=== PATIENT | female | born 1980 | race Two or more races ===

== ENCOUNTER → 2017-10-16 11:06 | Outpatient (CLI) | payer BC | END | disposition home or self-care (01) | LOC: D.CT 11:06 | DX: R11.0 Nausea (principal); R19.7 Diarrhea, unspecified; R10.9 Unspecified abdominal pain; K92.1 Melena ==

== ENCOUNTER → 2018-08-01 21:27 | Outpatient (CLI) | payer BC | END | disposition home or self-care (01) | LOC: D.LABREF 21:27 | DX: L72.0 Epidermal cyst (principal) ==

== ENCOUNTER → 2018-10-16 10:21 | Outpatient (CLI) | payer BC | END | disposition home or self-care (01) | LOC: D.CT 10:21 | DX: R10.32 Left lower quadrant pain (principal) ==

== ENCOUNTER 2018-11-15 10:10 | Outpatient (CLI) | payer BC ==
[2018-11-12 06:12] LABS: BASOPHILS 0.4 % (0-2); EOSINOPHILS 1.4 % (0-7); HEMOGLOBIN 13.8 g/dL (12-16); IMMATURE GRANULOCYTES 0.2 % (0-5); LYMPHOCYTES 27.7 % (15-50); MCH 30.7 pg (26.0-34.0); MCHC 34.5 g/dL (31.0-37.0); MCV 88.9 fL (80.0-100.0); MEAN PLATELET VOLUME 10.5 fL (7.4-10.4); MONOCYTES 8.5 % (2-11); NEUTROPHILS 61.8 % (40-80); PLATELET COUNT 242 10x3/uL (130-400); RDW 12.9 % (11.5-14.5); WBC 5.2 10x3/uL (4.8-10.8)
[2018-11-12 06:13] LABS: ANION GAP 15.1 mmol/L (8-16); CALCIUM 9.1 mg/dL (8.5-10.1); CARBON DIOXIDE 26.6 mmol/L (21.0-32.0); POTASSIUM - SERUM 3.7 mmol/L (3.5-5.1)
[2018-11-12 06:16] LABS: APTT 27.3 SECONDS (22.8-39.4); INR 1.06 (0.85-1.17); PROTIME 13.3 SECONDS (11.6-15.0)
[2018-11-12 06:39] VITALS: BMI 22.9
[2018-11-12 07:02] LABS: HCG URINE NEGATIVE (NEGATIVE)
--- NOTE | 2018-11-12 12:03 | NUR ---
1200-PROCEDURE CANCELLED DUE TO INSURANCE REASONS. PERIPHERAL IV DISCONTINUED, COTTON BALL AND BANDAID APPLIED. DISCHARGE PAPER GIVEN. PATIENT LEFT WITH FAMILY MEMBER AT SIDE ON OWN ACCORD.
[~2018-11-15] VITALS: Ht 157.5 cm; Wt 56.8 kg
--- NOTE | ~2018-11-15 | HEMODYNAMI ---
PATIENT:SARA SQUIRES MEDICAL RECORD: [id number] : 84 LOCATION:[facility] ADMISSION DATE: 11/15/18 Generatedon:11/15/201815:00 Patient name: SARA SQUIRES Patient #: [id number] SSN: : 1980 Date of study: 11/15/2018 Page: Of Hemodynamic Procedure Report Patient Data Patient Demographics Procedure consent was obtained First Name: SARA Gender: Female Last Name: TAVIA : 1980 Patient #: [id number] Age: 38 year(s) Race: Other Additional ID: [id number] Contact details [address]: [address] [place] [address] State: [place] City: [place] Zip code: [address] Admission Admission Data Admission Date: 11/15/2018 Admission Time: 10:10 Procedure Procedure Types Cath Procedure Peripheral Cath Diagnostic Procedure Miscellaneous Procedure Description Procedure Date Procedure Date: 11/15/2018 Procedure Start Time: 13:55 Procedure Staff Name Function Jhonny Raza MD Performing Physician Sancho Aly RT Monitor Chelsi Mercer RN Nurse Procedure Data Cath Procedure Fluoroscopy Diagnostic fluoroscopy Total fluoroscopy Time: time: 16.5 min 16.5 min Diagnostic fluoroscopy Total fluoroscopy dose: 260 dose: 260 mGy mGy Contrast Material Contrast Material Type Amount (ml) Isovue 300 100 Diagnostic catheters Device Type Used For End Catheter Placement Game Blisters CHG-B 5FR 65CM catheter ([id number]) Procedure Medications Medication Administration Route Dosage Heparin Flush Bag added to field 3 bags (1000units/500ml NS) Vancomycin I.V.P.B 500 mg Lidocaine 1% added to field 20 Versed I.V. 2 mg Fentanyl I.V. 100 mcg Versed I.V. 1 mg Fentanyl I.V. 50 mcg Versed I.V. 1 mg Fentanyl I.V. 50 mcg Hemodynamics Rest Heart Rate: 94 (bpm) Snapshots Pre Cath Intra NCS Post Cath Vital Signs Time Heart Resp SPO2 etCO2 NIBP (mmHg) Rhythm Pain Sedation Rate (ipm) (%) (mmHg) Status Level (bpm) 13:42:51 95 24 100 32.8 127/79(84) NSR 0 (11) 10(A) , No pain 13:46:58 93 10 100 32.8 119/81(104) NSR 0 (11) 10(A) , No pain 13:50:58 92 8 99 24.6 107/95(105) NSR 0 (11) 10(A) , No pain 13:55:04 97 10 99 23.1 125/79(96) NSR 0 (11) 10(A) , No pain 13:59:14 82 7 99 32.1 122/65(91) NSR 0 (11) 9(A) , No pain 14:04:13 83 11 99 35.8 Measuring NSR 0 (11) 8(A) , No pain 14:04:25 84 12 99 35.8 108/65(89) NSR 0 (11) 8(A) , No pain 14:08:31 77 19 99 38.1 110/71(79) NSR 0 (11) 8(A) , No pain 14:12:39 82 10 99 35.8 118/69(82) NSR 0 (11) 8(A) , No pain 14:17:38 82 13 98 36.6 Measuring NSR 0 (11) 8(A) , No pain 14:17:54 88 10 98 35.8 114/67(83) NSR 0 (11) 8(A) , No pain 14:22:53 88 23 98 41.1 Measuring NSR 0 (11) 8(A) , No pain 14:23:14 79 22 99 34.4 104/58(84) NSR 0 (11) 8(A) , No pain 14:27:54 81 11 98 38.1 111/65(77) NSR 0 (11) 8(A) , No pain 14:32:08 89 10 95 36.6 100/56(75) NSR 0 (11) 8(A) , No pain 14:36:22 94 17 99 36.6 84/62(72) NSR 0 (11) 8(A) , No pain 14:39:39 86 10 98 32.9 100/55(76) NSR 0 (11) 8(A) , No pain 14:43:45 97 11 98 35.9 106/64(83) NSR 0 (11) 8(A) , No pain 14:47:54 87 0 98 35.1 106/63(81) NSR 0 (11) 8(A) , No pain 14:52:02 81 11 98 34.4 103/59(78) NSR 0 (11) 8(A) , No pain 14:56:57 91 11 96 0 102/66(83) NSR 0 (11) 8(A) , No pain Medications Time Medication Route Dose Verified Delivered Reason Notes Eff ectiveness by by 13:49:48 Heparin Flush added 3 Jhonny Barry used for Bag to bags Raza Raza procedure (1000units/500ml field MD JERONIMO NS) 13:56:14 Vancomycin I.V.P.B 500 Jhonny Celestin used for mg Raza Ruslan general assembler 13:56:27 Lidocaine 1% added 20ml Jhonny Barry for local to vial Raza Raza anesthetic field MD JERONIMO 13:58:40 Versed I.V. 2 mg Jhonny Sabi for Raza Ruslan RN sedation 13:58:50 Fentanyl I.V. 100 Jhonny Sabi for mcg Raza Ruslan RN sedation 14:03:01 Versed I.V. 1 mg Jhonny Sabi for Raza Ruslan RN sedation 14:03:10 Fentanyl I.V. 50 Jhonny Sabi for mcg Raza Ruslan RN sedation 14:16:17 Versed I.V. 1 mg Jhonny Sabi for Raza Ruslan RN sedation 14:16:28 Fentanyl I.V. 50 Jhonny Sabi for mcg Raza Ruslan RN sedation Procedure Log Time Note 13:22:52 Sancho Aly RT (R) (CV) sent for patient. Start room use. 13:23:00 Time tracking: Regular hours (M-F 7:00 - 5:00) 13:23:06 Plan of Care:Hemodynamics will remain stable., Cardiac rhythm will remain stable., Comfort level will be maintained., Respiratory function will remain adequate., Patient/ family verbilizes understanding of procedure., Procedure tolerated without complication., Recovers from procedure without complications.. 13:23:11 Use device set IR Diagnostic 13:23:12 ACIST Syringe (65781) opened to sterile field. 13:23:13 ACIST Hand Control (75877) opened to sterile field. 13:23:13 ACIST Manifold (17587) opened to sterile field. 13:23:14 Bag Decanter (2001S) opened to sterile field. 13:23:14 Sterile Angiographic Pack opened to sterile field. 13:23:15 Tegaderm 4 x 4 (1626W) opened to sterile field. 13:23:22 Patient received from Outpatients to IR Alert and oriented. Tansferred to table in Supine position. 13:23:23 Warm blankets applied, and kimberlyn hugger turned on for patient comfort. 13:23:24 Correct patient and procedure confirmed by team. 13:23:25 Signed procedure consent form obtained from patient. 13:23:26 ECG and BP/O2 sat monitors applied to patient. 13:23:28 Full Disclosure recording started 13:23:28 - 13:23:29 - 13:23:32 H&P Date Dictated: 11/15/2018 H&P Addendum completed by physician on da y of procedure. (MUST COMPLETE FOR ALL OUTPATIENTS). 13:23:33 Pre-procedure instructions explained to patient. 13:23:34 Pre-op teaching completed and patient verbalized understanding. 13:23:35 Family in waiting room. 13:23:37 Patient NPO since Midnight. 13:23:41 Is the patient allergic to Iodine/contrast media? No. 13:41:33 Is patient on blood thinner?No 13:41:39 Patient diabetic? No. 13:41:40 - 13:41:41 ----Pre-sedation anethsthesia assessment.---- 13:41:44 Vital chart was started 13:41:45 Baseline sample Acquired. 13:41:51 Previous problem with sedation/anesthesia? No ? 13:41:53 Snore? Yes 13:41:57 Sleep apnea? Yes 13:41:58 Deviated septum? No 13:41:59 Opens mouth fully? Yes 13:42:01 Sticks out tongue? Yes 13:42:05 Airway obstruction? No ? 13:42:15 Dentures? No ? 13:42:28 Patient pain scale 0/10 no '. 13:43:37 IV patent on arrival in left forearm with 0.9% NaCl at [facility]. 13:43:39 Sharps counted by scrub and verified by R.N. 13:43:40 Alarms reviewed by R. N. 13:43:44 Right groin area was prepped with chlora-prep and draped in sterile fashion 13:49:48 Heparin Flush Bag (1000units/500ml NS) 3 bags added to field was administered by Jhonny Raza MD; used for procedure; 13:50:58 Physician arrived 13:50:59 --------ALL STOP TIME OUT------ 13:51:03 Right groin site verified by team. 13:51:09 Sedation plan: IV Moderate Sedation Medication:Versed, Fentanyl 13:55:02 Procedure started. 13:55:26 Local anesthetic to right femoral vein with Lidocaine 1% by Jhonny Raza MD.INITIAL ACCESS ONLY 13:55:38 DOC .035 wire (P96065) opened to sterile field. 13:55:39 PERCUTANEOUS ENTRY 19GA needle opened to sterile field. 13:55:39 SHEATH 5FR [place] (MQR632) opened to sterile field. 13:55:45 Cook Kemar 1 7Fr Guide sheath opened to sterile field. 13:56:14 Vancomycin 500 mg I.V.P.B was administered by Sabi Mercer RN; used fo r procedure; 13:56:27 Lidocaine 1% 20ml vial added to field was administered by Jhonny Raza MD; for local anesthetic; 13:58:40 Versed 2 mg I.V. was administered by Sabi Mercer RN; for sedation; 13:58:50 Fentanyl 100 mcg I.V. was administered by Sabi Mercer RN; for sedation; 14:03:01 Versed 1 mg I.V. was administered by Sabi Mercer RN; for sedation; 14:03:10 Fentanyl 50 mcg I.V. was administered by Sabi Mercer RN; for sedation ; 14:04:07 GLIDE WIRE ANGLE 180cm (HG1093) opened to sterile field. 14:04:08 TORQUE DEVICE PLASTIC .038 ( TD01) opened to sterile field. 14:04:09 GLIDE CATHETER 5FR COBRA 65cm (CG502) opened to sterile field. 14:06:52 A Cook CHG-B 5FR 65CM catheter (J52939) was advanced over the wire and used for . 14:14:33 MOVEABLE CORE wire (M24499) opened to sterile field. 14:16:17 Versed 1 mg I.V. was administered by Sabi Mercer RN; for sedation; 14:16:28 Fentanyl 50 mcg I.V. was administered by Sabi Mercer RN; for sedation ; 14:16:49 12 mm x 14 chase lot#[id number] x 4 14:18:56 12 mm x 14 chase lot#[id number] 14:30:39 14 mm x 7 chase lot#[id number] 14:33:59 14 mm x 14 mm lot#[id number] x2 14:37:06 COIL Chase 20mm x 14cm (P50640) opened to sterile field. 14:43:03 Procedure ended.(Physican Out) 14:45:29 Fluoroscopy time 16.50 minutes. 14:45:35 Fluoroscopy dose: 260 mGy 14:45:35 Flurop Dose total: 260 14:45:43 Contrast amount:Isovue 300 100ml. 14:45:45 Sharps counted by scrub and verified by R.N. 14:45:47 Insertion/operative site no bleeding no hematoma. 14:45:57 Post-op/insertion site Right Femoral vein dressed using a 4 x 4 and Tegaderm. 14:46:07 Post right femoral vein:stable 14:46:18 Post procedure instruction explained to patient.Patient verbalizes understanding. 14:46:21 Procedure and supply charges have been captured, reviewed, submitted an d are correct. 14:59:55 Report given to Outpatients. 14:59:59 Patient transfered to Outpatients with Stretcher. 15:00:20 Vital chart was stopped Device Usage Item Name Manufacture Quantity Catalog Hospital Part Current Minimal Lot# / Number Charge Number Stock Stock Serial# Code ACIST Acist 1 67517 811379 571840 009474 20 Syringe Medical (72873) Systems Inc ACIST Hand Acist 1 20503 004709 512056 650589 5 Control Medical (47578) Systems Inc ACIST Acist 1 74800 857237 846216 635737 5 Manifold Medical (30085) Systems Inc Bag Decanter Microtek 1 2002S 539309 05883 486509 5 (2001S) Medical Inc. Sterile Cardinal 1 [id number] 860651 283091 5 Angiographic Health Pack Tegaderm 4 x 3M 1 1626W 285009 872574 394561 5 4 (1626W) DOC .035 Cook Medical 1 S35091 091523 130615 5 wire (K67975) PERCUTANEOUS Cook Medical 1 Y91830 888833 525068 5 0361940 ENTRY 19GA needle SHEATH 5FR Terumo 1 AHP795 100091 632133 610899 5 [place] (ASR149) Cook Kemar 1 Cook Medical 1 B41986 257600 486262 5 6273813 7Fr Guide sheath GLIDE WIRE Terumo 1 NL3759 066678 714036 462012 5 ANGLE 180cm (LP7486) TORQUE Lindsay 1 TD01 146539 318555 195084 5 DEVICE Scientific PLASTIC .038 ( TD01) GLIDE Terumo 1 CG502 588462 459845 5 CATHETER 5FR COBRA 65cm (CG502) Cook CHG-B Cook Medical 1 X60989 178844 207944 418972 5 5FR 65CM catheter (H75837) MOVEABLE Game Blisters Medical 1 O78731 805272 098326 5 1309294 CORE wire (H50999) COIL Chase [place] Medical 1 V60485 238327 167168 895684 5 3670490 20mm x 14cm (N73527) Signature Audit [place] Stage Time Signature Unsigned Intra-Procedure 11/15/2018 Sancho 3:00:17 PM Sheeba RT (R) (CV) Signatures Monitor : Sancho Signature : Sheeba RT Date : Time : [address] [address]
[~2018-11-15 10:10] MED LIST: DUEXIS 800-26.1 EACH PO; HYDROCODON-ACE1 EAC7 PO
[2018-11-15 12:00] VITALS: Ht 157.5 cm; Wt 56.8 kg
[2018-11-15 12:09] LABS: HCG URINE NEGATIVE (NEGATIVE)
--- NOTE | 2018-11-15 19:15 | NUR ---
RIGHT GROIN DRESSING C/D/I, AREA SOFT, NONTENDER, NONEDEMATOUS, NO BRUISING NOTED. PATIENT ALLOWED TO GET OUT OF BED, LEFT FOREARM PIV DC'D WITH TIP INTACT. PATIENT DENIES DIZZINESS OR UNSTEADINESS. PATIENT VOIDS IN TOILET, LARGE AMOUNT. DRESSING IN PERSONAL CLOTHING
--- NOTE | 2018-11-15 19:25 | NUR ---
DISCHARGE INSTRUCTIONS REVIEWED WITH PATIENT AND SPOUSE. DISCHARGED HOME VIA WHEELCHAIR TO PRIVATE VEHICLE WITH SPOUSE
== END 2018-11-15 19:25 | disposition home or self-care (01) ==
LOC: D.SP 10:10
PROVIDERS: Specialist
DX: N94.89 Other specified conditions associated with female genital organs and menstrual cycle (principal); I86.2 Pelvic varices; Z01.812 Encounter for preprocedural laboratory examination

== ENCOUNTER → 2021-02-22 06:52 | Outpatient (CLI) | payer BC ==
[2018-11-15 12:00] VITALS: BMI 22.9
== END | disposition home or self-care (01) ==
LOC: D.US 06:52
PROVIDERS: ATTEND Internal Medicine Gastroenterology
DX: R11.0 Nausea (principal); R10.13 Epigastric pain